=== PATIENT | female | born 1990 | race Caucasian/White ===

== ENCOUNTER 2016-06-14 12:26 | Observation (INO) | payer OTHER, SELFPAY ==
[2016-06-14 12:58] VITALS: BP 117/64; PULSE 95
[2016-06-14 13:29] LABS: Collection Type VOID
[2016-06-14 13:30] LABS: COMPLETE URINE MICROSCOPIC? YES; Ph 5.5 (5-6)
[2016-06-14 13:38] LABS: Bacteria MODERATE /HPF (NEGATIVE); Epithelial Cells MODERATE /HPF (FEW)
== END 2016-06-14 14:00 | disposition home or self-care (01) ==
LOC: OB 12:26
PROVIDERS: ADMIT Family Medicine; ATTEND Family Medicine
DX: Z34.83 Encounter for supervision of other normal pregnancy, third trimester (principal)
CPT/HCPCS: 80307; 81000; G0378

== ENCOUNTER 2016-06-22 04:49 | Inpatient (IN) | payer OTHER, SELFPAY ==
[2016-06-22] MEDS ORDERED: Lactated Ringers 1,000 ML IV ONE ×2 (05:01→09:13)
[2016-06-22] MEDS ORDERED: Pepcid 20 MG VIAL IV SCH (05:15)
[2016-06-22] MEDS ORDERED: BICITRA 30 ML CUP PO SCH (05:15)
[2016-06-22] MEDS ORDERED: Reglan 10 MG/2 ML IV SCH (05:15)
[2016-06-22] MEDS ORDERED: Lactated Ringers 1,000 ML IV SCH (05:30)
[2016-06-22 05:35] LABS: Mean Platelet Volume 10.2 fl (6-9.5); Platelet Count 235 K/mm3 (150-450); Red Blood Count 3.77 M/mm3 (4.1-5.4); Red Cell Distribution Width 12.9 % (11.5-14.0); White Blood Count 15.4 K/mm3 (4.0-10.5)
[2016-06-22 05:37] LABS: Mean Corpuscular Hemoglobin 32.3 pg (26-32)
[2016-06-22 05:46] LABS: INR 0.99 (0.8-3.0); PROTIME 11.1 SECONDS (9.95-12.35)
[2016-06-22 05:49] LABS: PTT 28.3 SECONDS (25.3-37.0)
[2016-06-22 05:55] LABS: Collection Type VOID
[2016-06-22 06:02] LABS: Bacteria MANY /HPF (NEGATIVE); COMPLETE URINE MICROSCOPIC? YES; Epithelial Cells MANY /HPF (FEW); Mucus SLIGHT /HPF (NEGATIVE)
[2016-06-22] MEDS ORDERED: Nubain 10 MG/ML IV PRN (07:12)
[2016-06-22] MEDS ORDERED: Narcan 0.4 MG/ML IV PRN (07:12)
[2016-06-22] MEDS ORDERED: DEMEROL 50 MG IV PRN (07:12)
[2016-06-22] MEDS ORDERED: BENADRYL 50 MG/ML IV PRN (07:12)
[2016-06-22] MEDS ORDERED: MORPHINE SULFATE 2 MG INJ IV PRN (07:12)
[2016-06-22] MEDS ORDERED: HOLD NARCOTIC ANALGESICS AND SEDATIVES X24 HR MC PRN (07:12)
[2016-06-22] MEDS ORDERED: Zofran 4 MG/2 ML VIAL IV PRN (07:12)
[2016-06-22] MEDS ORDERED: CLARITIN 10 MG PO PRN (07:12)
[2016-06-22] MEDS ORDERED: CORTISONE 1% CREAM TP PRN (07:17)
[2016-06-22] MEDS ORDERED: Dulcolax 10 MG SUPP PR PRN (07:17)
[2016-06-22] MEDS ORDERED: MOTRIN 400 MG PO PRN (07:17)
[2016-06-22] MEDS ORDERED: LANSINOH 40 GM TOP PRN (07:17)
[2016-06-22] MEDS ORDERED: TUCKS TP PRN (07:17)
[2016-06-22] MEDS ORDERED: TYLENOL EXTRA STRENGTH 500 MG PO PRN (07:17)
[2016-06-22] MEDS ORDERED: Dextrose 5%-Lr IV Solution 1000 ML 1,000 ML IV SCH (07:30)
[2016-06-22] MEDS ORDERED: Narcan 0.4 MG/ML IV ONE (08:00)
[2016-06-22] MEDS ORDERED: SUBLIMAZE 100 MCG/2 ML IV ONE (08:00)
[2016-06-22] MEDS ORDERED: Pitocin 10 UNITS/ML IV ONE (08:00)
[2016-06-22] MEDS ORDERED: Astramorph-Pf 5 MG/10 ML IV ONE (08:00)
[2016-06-22] MEDS ORDERED: ROPIVACAINE 0.2% IJ ONE (08:00)
[2016-06-22] MEDS ORDERED: Ephedrine Sulfate 50 MG/ML IV ONE (08:00)
[2016-06-22] MEDS ORDERED: BENADRYL 50 MG/ML IV ONE (08:00)
[2016-06-22] MEDS ORDERED: KEFZOL 1 GM ONE (08:57)
[2016-06-22 11:36] LABS: COMPLETE URINE MICROSCOPIC? NO; Collection Type CATH
--- NOTE | 2016-06-22 11:56 | OP ---
SURGERY DATE: 06/22/16 SURGERY TIME: 813 PREOPERATIVE DIAGNOSES: 1. HISTORY OF PRIOR SECTION. 2. TERM INTRAUTERINE . 3. SUICIDAL IDEATION. 4. BIPOLAR DISORDER. 5. BREECH PRESENTATION. 6. DESIRES PERMANENT STERILIZATION. POSTOPERATIVE DIAGNOSES: 1. HISTORY OF PRIOR SECTION. 2. TERM INTRAUTERINE . 3. SUICIDAL IDEATION. 4. BIPOLAR DISORDER. 5. BREECH PRESENTATION. 6. DESIRES PERMANENT STERILIZATION. PROCEDURE: 1. Repeat section plus bilateral tubal ligation. SURGEON: Enmanuel Khan M.D. ANESTHESIA: Spinal by Donn Lorenz CRNA. ESTIMATED BLOOD LOSS: 400 cc. URINE OUTPUT: 400 cc clear straw-colored urine. IV FLUIDS: 1200 cc of crystalloid. SPECIMEN: 1. Bilateral fallopian tube segments. DESCRIPTION OF PROCEDURE: After informed written consent was obtained, the patient was taken to the OR. I discussed the risk of bleeding, infection, and damage to surrounding tissues prior to her signing consent. I also discussed the accepted failure rate of tubal ligation being 1:300 and if there were any chance that she were to think she were to become , she needed to seek medical care right away. The patient voiced understanding of that failure rate and voiced understanding of the permanent nature of bilateral tubal ligation and wished to proceed. She was taken to the OR and prepped and draped in the usual sterile fashion after she underwent spinal anesthesia. After adequate level of anesthesia was assessed, a skin incision was made by knife and carried down through the subcutaneous fat to the level of the fascia which was nicked on both sides of the midline. Fascial incision was then extended in a horizontal fashion using curved Esqueda scissors. The superior free edge of the fascia was grasped with Fatimah clamps and the underlying rectus muscles were dissected free. The same was repeated inferiorly. Next, the peritoneal cavity was opened carefully and extended in a horizontal fashion. Bladder blade was then inserted. Bladder flap was created and reflected over the lower uterine segment. Uterine incision was made by knife and carried down to the level of the amniotic membranes which were carefully, artificially ruptured. A male infant with delivered from the breech presentation with no complications. There was a strong cry immediately after delivery. The oropharynx and nares were bulb suctioned free of amniotic fluid. The cord was clamped and cut and the baby was handed off to the awaiting nursery team. The uterus was then exteriorized and the placenta was manually removed from the uterine cavity. The uterine cavity was then sponge curetted clean with a Lap sponge and the uterine incision was closed with #1 chromic in a running, locked fashion. Two layers were used to provide good closure and good hemostasis. Next, the right fallopian tube was identified and carried down to the fimbrial edge. It was grasped with a Dillingham and then a window was made in the mesosalpinx with electrocautery. The distal and proximal tube segments were then ligated with a chromic tie and the interceding tube segment was dissected free with Metzenbaum scissors. The free end of the fallopian tube was then cauterized with electrocautery. The same was repeated on the left with no complications. The posterior cul-de-sac was wiped free of blood and clot with a moist Lap sponge and the uterus was returned to the peritoneal cavity. The lateral gutters were wiped free of blood and clot and the uterine incision was inspected and noted to be hemostatic. Next, the fascial layer was closed with the 0 Vicryl in a running fashion. There was small bowel and greater omentum extruding through the incision. Therefore, a Taylor was used as a backstop to cover the small intestine and greater omentum. The fascia was closed in a running fashion with good closure and good hemostasis. Taylor was removed prior to complete closure. The subcutaneous fat was then irrigated with warm, sterile saline and any areas of bleeding were cauterized with electrocautery. Finally, the skin layer was closed with 4-0 undyed Vicryl in running subcuticular fashion. Steri-Strips and occlusive dressing were placed over the incision and the patient was transferred to the recovery room in excellent condition.
[2016-06-22] MEDS: PERCOCET TABLET 5/325MG PO PRN ×4 (13:32→22:56)
[2016-06-22] MEDS ORDERED: Seroquel 25 MG PO SCH (22:00)
[2016-06-22] MEDS: Colace 100 MG PO SCH ×2 (22:36)
[2016-06-22] MEDS: Mylicon 80MG PO PRN (22:36)
[2016-06-23] MEDS: FERREX 150 PO SCH ×2 (00:02→10:01)
[2016-06-23] MEDS: PERCOCET TABLET 5/325MG PO PRN (03:36)
[2016-06-23 04:16] VITALS: O2SAT 99
[2016-06-23 05:57] LABS: Mean Cell Volume 97.3 fl (78-100); Mean Platelet Volume 10.8 fl (6-9.5); Platelet Count 220 K/mm3 (150-450); Red Blood Count 3.71 M/mm3 (4.1-5.4); Red Cell Distribution Width 13.1 % (11.5-14.0); White Blood Count 12.5 K/mm3 (4.0-10.5)
[2016-06-23 06:08] LABS: Mean Corpuscular Hemoglobin 33.1 pg (26-32)
[2016-06-23] MEDS ORDERED: Phenergan 25 MG INJ IM PRN (07:12)
[2016-06-23] MEDS ORDERED: DEMEROL 75 MG IM PRN (07:12)
[2016-06-23] MEDS ORDERED: Tylenol #3 Tablet PO PRN (07:17)
[2016-06-23] MEDS ORDERED: Restoril 15 MG PO PRN (07:17)
[2016-06-23] MEDS ORDERED: Ambien 10 MG PO PRN (07:17)
[2016-06-23 07:44] LABS: Hepatits B Sur Ag Screen Non Reactive (Non Reactive)
[2016-06-23 08:33] VITALS: BP 122/76; PULSE 88
[2016-06-23] MEDS ORDERED: NORCO 7.5/325 MG TAB PO PRN (08:37)
[2016-06-23] MEDS ORDERED: Dilantin 100 MG PO SCH ×2 (10:00→22:00)
[2016-06-23] MEDS: Colace 100 MG PO SCH (10:01)
[2016-06-23] MEDS: Mylicon 80MG PO PRN (10:01)
--- NOTE | 2016-06-23 13:26 | PCM.DS ---
Discharge Summary Date of Admission: 06/22/16 04:49 Admitting Physician: DARREN GALLAGHER Consults: Consults on Case 06/22/16 05:01 Notify Anesthesia Provider ROUTINE Notify Physician OF ADMISSION 06/22/16 07:12 Notify Anesthesia Provider PRN Primary Care Provider: DARREN GALLAGHER Allergies Allergies levetiracetam [From Keppra] Allergy (Mild, Verified 06/22/16 05:14) rash and "makes me sick" Hospital Summary - Hospital Course Hospital Course: patient is doing quite well POD #1 s/p - Vitals & Intake/Output Vital Signs: Vital Signs Temperature 97.9 F 06/23/16 08:00 Pulse Rate 88 06/23/16 08:00 Respiratory Rate 20 06/23/16 08:00 Blood Pressure 122/76 06/23/16 08:00 O2 Sat by Pulse Oximetry 99 06/23/16 04:00 Intake & Output: Intake & Output 06/21/16 06/22/16 06/23/16 06/24/16 11:59 11:59 11:59 11:59 Output Total 1000 Balance -1000 Weight 132.449 kg - Lab Result Diagrams: 06/23/16 05:08 Lab Results-Last 24 Hrs: Lab Results-Last 24 Hours 06/22/16 06/23/16 Range/Units 05:20 05:08 WBC 12.5 H (4.0-10.5) K/mm3 RBC 3.71 L (4.1-5.4) M/mm3 Hgb 12.3 (12.0-16.0) gm/dl Hct 36.1 (35-47) % MCV 97.3 (78-100) fl MCH 33.1 H (26-32) pg MCHC 34.1 (32-36) g/dl RDW 13.1 (11.5-14.0) % Plt Count 220 (150-450) K/mm3 MPV 10.8 H (6-9.5) fl Hep Bs Antigen Non Reactive (Non Reactive) HIV Ag/Ab Combo Qual Non Reactive (Non Reactive) HIV Ag/Ab Interpret See Result Note: Micro Results-Entire Visit: Microbiology 06/22/16 08:30 Urine Culture - Preliminary Urine, Catheterized NO GROWTH TO DATE - Procedures and Test Procedures and Tests throughout Hospitalization: Therapy Orders & Screens 06/22/16 07:12 Smoking Cessation Education ONCE Comment: Diagnosis: Scheduled Smoking Status: Current some day smoker How long have you smoked: 15 Have you smoked in the past 12 months: Yes Approximately how many cigarettes per day: 20 Do you dip or chew tobacco: No If,Former Smoker,when did you quit: 12/14/11 Discharge Exam General Appearance: no apparent distress, alert Respiratory Exam: normal breath sounds, lungs clear, No respiratory distress Cardiovascular Exam: regular rate/rhythm, normal heart sounds Gastrointestinal/Abdomen Exam: soft, other (incision c/d/i) Extremity Exam: normal inspection, normal range of motion Final Diagnosis/Problem List - Final Discharge Diagnosis/Problem (1) delivery delivered Current Visit: Yes Status: Acute (2) Tubal ligation status Current Visit: Yes Status: Acute - Discharge Disposition: Home, Self-Care Condition: Stable Prescriptions: New Quetiapine Fumarate 25 mg [Seroquel 25 MG] 50 mg PO HS #30 tablet Hydrocodone Bit/Acetaminophen [[place] 7.5-325 Tablet] 1 tab PO Q6H PRN PRN # 30 tablet PRN Reason: Pain Continue Albuterol 2.5 mg/3 ml Neb [Proventil 2.5 mg/3 ml Neb] 1 neb IH Q4- 6HPRN PRN PRN Reason: Cough No Action Vitamins/Fe Sulf/FA [ Tablet] 1 tab PO DAILY #30 tablet Ranitidine HCl [Zantac] 150 mg PO BID Follow up with: DARREN GALLAGHER MD [Primary Care Provider] - 1 Week
== END 2016-06-23 14:20 | disposition home or self-care (01) | DRG 765 ==
LOC: OB 04:49
PROVIDERS: ADMIT Family Medicine; ATTEND Family Medicine
PROC: 10D00Z1 Extraction of Products of Conception, Low, Open Approach (ICD-10-PCS; principal; 2016-06-22)
PROC: 0UL70ZZ Occlusion of Bilateral Fallopian Tubes, Open Approach (ICD-10-PCS; 2016-06-22)
DX: O32.1XX0 Maternal care for breech presentation, not applicable or unspecified (principal); R45.851 Suicidal ideations; Z37.9 Outcome of delivery, unspecified; Z3A.38 38 weeks gestation of pregnancy; Z37.0 Single live birth; F31.9 Bipolar disorder, unspecified; Z30.2 Encounter for sterilization
CPT/HCPCS: 01961; 36415; 64425; 76942; 80307; 81000; 81002; 85027; 85610; 85730; 86592; 86701; 86702; 86850; 86900; 86901; 87086; 87340; 87389; 94799; J0690; J1200; J2274; J2310; J2590; J2795; J3010; L0625; A9270-GY

== ENCOUNTER 2016-08-13 13:06 | Emergency (ER) | payer OTHER, SELFPAY ==
[2016-08-13 13:17] VITALS: BP 106/79
--- NOTE | 2016-08-13 13:28 | ERPHSYRPT ---
- History of Present Illness Time Seen by Provider: 08/13/16 13:24 Source: patient Exam Limitations: no limitations Patient Subjective Stated Complaint: pt here for sob and cough for over a month off and on getting worse, sob at rest,nonproductive cough, no fever,runny nose Triage Nursing Assessment: pt alert, walked in, resp labored with excertion, cough occ, chest with wheezes and rhonci Physician History: Pt. with dry cough, SOB for past 2 weeks, along with congestion, sore throat but no fever, chills, N/V/D, dizziness or weakness. Pt. also states 1/2 PPD. Recently given to baby boy 2 months. Using mom's inhaler with some relief. Timing/Duration: day(s), gradual onset Cough Quality/Degree: moderate, dry cough Possible Cause: occasional episodes Modifying Factors: Improves With: activity (worsens), albuterol inhaler (improve ), exertion (worsens) Associated Symptoms: muscle aches, nasal congestion, nasal drainage, shortness of breath, No fever, No chills, No lightheadedness Allergies/Adverse Reactions: levetiracetam [From [facility]] Allergy (Mild, Verified 08/13/16 13:17) rash and "makes me sick" Home Medications: Albuterol 2.5 mg/3 ml Neb [Proventil 2.5 mg/3 ml Neb] 1 neb IH Q4-6HPRN PRN 02/15/16 [History] Ranitidine HCl [Zantac] 150 mg PO BID 06/14/16 [History] Phenytoin Sod Extended 100 mg* [Dilantin 100 MG] 300 mg DAILY 08/13/16 [ History] Hx Tetanus, Diphtheria Vaccination/Date Given: Yes Hx Influenza Vaccination/Date Given: No Hx Pneumococcal Vaccination/Date Given: No Immunizations Up to Date: Yes - Review of Systems Constitutional: Fatigue, Malaise, Weakness, No Fever, No Chills Eyes: No Symptoms Ears, Nose, & Throat: Nose Congestion, Nose Discharge, Throat Pain, No Painful Swallowing Respiratory: Cough, Dyspnea, Wheezing Cardiac: No Chest Pain, No Edema, No Palpitations, No Syncope Abdominal/Gastrointestinal: No Abdominal Pain, No Nausea, No Vomiting, No Diarrhea Genitourinary Symptoms: No Dysuria Musculoskeletal: No Back Pain, No Neck Pain Skin: No Rash Neurological: No Dizziness, No Focal Weakness, No Sensory Changes Psychological: No Symptoms Endocrine: No Symptoms All Other Systems: Reviewed and Negative - Past Medical History Pertinent Past Medical History: Yes Neurological History: Seizures ENT History: No Pertinent History Cardiac History: No Pertinent History Respiratory History: Bronchitis Endocrine Medical History: No Pertinent History Musculoskeletal History: No Pertinent History GI Medical History: No Pertinent History History: No Pertinent History Psycho-Social History: Bipolar, Depression Female Reproductive Disorders: No Pertinent History Other Medical History: Asthma - Past Surgical History Past Surgical History: Yes Neuro Surgical History: No Pertinent History Cardiac: No Pertinent History Respiratory: No Pertinent History Gastrointestinal: No Pertinent History Genitourinary: No Pertinent History Musculoskeletal: No Pertinent History Female Surgical History: Section, Tubal Ligation Other Surgical History: leg surgery - Social History Smoking Status: Current some day smoker How long have you smoked: 15 Exposure to second hand smoke: Yes Drug Use: none Patient Lives Alone: No - Female History Hx Last Menstrual Period: [id number] Hx Now: Yes - Nursing Vital Signs Nursing Vital Signs: Initial Vital Signs Temperature 97.9 F Temperature Source Oral Pulse Rate 93 Respiratory Rate 22 Blood Pressure [Right Arm] 106/79 Pain Intensity 0 - Physical Exam General Appearance: no apparent distress, alert Eye Exam: PERRL/EOMI, eyes nml inspection Ears, Nose, Throat Exam: normal ENT inspection, TMs normal, pharynx normal, moist mucous membranes Neck Exam: normal inspection, non-tender, supple, full range of motion Respiratory Exam: diminished breath sounds, wheezing (throughout), No respiratory distress Cardiovascular Exam: regular rate/rhythm, normal heart sounds Gastrointestinal/Abdomen Exam: soft, No tenderness Back Exam: normal inspection, No CVA tenderness, No vertebral tenderness Extremity Exam: normal inspection, normal range of motion Neurologic Exam: alert, oriented x 3, cooperative, normal mood/affect, sensation nml, No motor deficits Skin Exam: normal color, warm, dry, No rash Lymphatic Exam: No adenopathy SpO2: 97 Oxygen Delivery: Room Air - Course Nursing assessment & vital signs reviewed: Yes Ordered Tests: Active Orders 24 hr Category Date Time Status CHEST 2 VIEWS (PA AND LAT) Stat Exams 08/13/16 13:33 Completed Respiratory Nebulizer STAT RT 08/13/16 13:33 Completed Medication Summary Discontinued Medications Generic Name Dose Route Start Last Admin Trade Name Freq PRN Reason Stop Dose Admin Albuterol/Ipratropium 3 ml 08/13/16 13:31 08/13/16 14:03 Duoneb 0.5-3 Mg/3 Ml Neb IH 08/13/16 13:32 3 ml STAT ONE Administration Albuterol/Ipratropium Confirm 08/13/16 14:02 Duoneb 0.5-3 Mg/3 Ml Neb Administered 08/13/16 14:03 Dose 3 ml IH .STK-MED ONE Methylprednisolone Sodium Succinate 125 mg 08/13/16 13:31 08/13/16 13:47 Solu-Medrol 125 Mg IM 08/13/16 13:32 125 mg STAT ONE Administration Methylprednisolone Sodium Succinate Confirm 08/13/16 13:41 Solu-Medrol 125 Mg Administered 08/13/16 13:42 Dose 125 mg .ROUTE .STK-MED ONE - Progress Progress: improved Air Movement: good Progress Note: 08/13/16 13:31 Pt. given Solumedrol, Duonebs with some relief of her symptoms Blood Culture(s) Obtained: No Antibiotics given: No Counseled pt/family regarding: lab results, diagnosis, rad results - Departure Time of Disposition: 14:37 Departure Disposition: Home Clinical Impression: Bronchitis Condition: Stable Critical Care Time: No Instructions: Cough -- Adult, Bronchitis Additional Instructions: Tylenol or Motrin for fever, RX: Albuterol nebs/MDI, Prednisone, Z-Pack Return for worse cough, fever, short of breath or any problems Prescriptions: Albuterol 8 gm Mdi Hfa [Ventolin Hfa MDI] 8 gm IH Q4-6HPRN PRN #0 [id number] PRN Reason: Cough Azithromycin [Zithromax] 500 mg PO ZPACK #1 tablet Prednisone 20 mg [Deltasone 20 mg] 60 mg PO DAILY #15 tablet
[2016-08-13] MEDS ORDERED: DUONEB 0.5-3 MG/3 ml Neb IH ONE ×2 (13:31→14:02)
[2016-08-13] MEDS ORDERED: solu-MEDROL 125 MG IM ONE (13:31)
[2016-08-13] MEDS ORDERED: solu-MEDROL 125 MG ONE (13:41)
--- NOTE | 2016-08-13 14:03 | XRAY ---
Indication: Cough and short of breath. Comparison: April 27, 2008. PA/lateral chest again demonstrates normal heart, lungs, and bony thorax.
[2016-08-13 14:09] VITALS: PULSE 93
[2016-08-13 14:42] VITALS: O2SAT 97
== END 2016-08-13 15:00 | disposition home or self-care (01) ==
LOC: ED 13:06
DX: J40 Bronchitis, not specified as acute or chronic (principal); R06.02 Shortness of breath; R05 Cough
CPT/HCPCS: 71020; 94640; 96372; 99284; J2930; A9270-GY

== ENCOUNTER 2017-09-25 12:56 | Emergency (ER) | payer OTHER, SELFPAY ==
[2017-09-25] MEDS ORDERED: TORAdol 30 mg Injection IM ONE (13:21)
[2017-09-25] MEDS ORDERED: NORCO 5/325 MG PO ONE (13:24)
--- NOTE | 2017-09-25 13:30 | ERPHSYRPT ---
- History of Present Illness Time Seen by Provider: 09/25/17 13:25 Source: patient Exam Limitations: no limitations Patient Subjective Stated Complaint: Pt states "I have alpha 1 lung disease and I have been having pain for the past 8 months but the past couple of weeks I have really been hurting. I am just really here to make sure there is no cancer on my left lung." Triage Nursing Assessment: Pt alert and oriented X 3, skin pwd Pt ambulates with an upright steady gait, able to speak in clear full sentences. PT in no apparent distress. Physician History: 27-year-old white female who states that she has alpha-1 antitrypsin disease and chronic back pain arrives with complaint of pain in her lateral and posterior left chest with breathing described as sharp symptoms for 8 months. She has an occasional cough. She apparently has a prescription for hydrocodone/acetaminophen 7.5/325 but states she has not been taking it for 2 weeks because "it doesn't work"" Past medical history includes seizures, bronchitis, bipolar depression, asthma. Past surgical history includes , tubal ligation, leg surgery. Patient states she smokes despite her alpha-1 antitrypsin deficiency Timing/Duration: other (symptoms for 8 months) Severity: moderate Modifying Factors: Improves With: other (patient states she has a prescription for hydrocodone/acetaminophen but is not taking it) Associated Symptoms: chest pain (pain in the left lateral and posterior chest with breathing and coughing), No nausea, No vomiting, No abdominal pain, No shortness of breath, No heartburn, No diaphoresis, No cough, No loss of appetite Allergies/Adverse Reactions: levetiracetam [From [facility]] Allergy (Mild, Verified 08/13/16 13:17) rash and "makes me sick" Home Medications: Albuterol 2.5 mg/3 ml Neb [Proventil 2.5 mg/3 ml Neb] 1 neb IH Q4-6HPRN PRN 02/15/16 [History] Phenytoin Sod Extended 100 mg* [Dilantin 100 MG] 300 mg DAILY 08/13/16 [ History] Hx Tetanus, Diphtheria Vaccination/Date Given: Yes Hx Influenza Vaccination/Date Given: No Hx Pneumococcal Vaccination/Date Given: No Immunizations Up to Date: Yes - Review of Systems Constitutional: No Fever, No Chills Eyes: No Symptoms Ears, Nose, & Throat: No Symptoms Respiratory: Cough, No Cyanosis, No Dyspnea, No Dyspnea on Exertion ([place]), No Stridor, No Wheezing Cardiac: Other (pain and lateral posterior left chest with breathing and coughing) Abdominal/Gastrointestinal: No Abdominal Pain, No Nausea, No Vomiting, No Diarrhea Genitourinary Symptoms: No Dysuria Musculoskeletal: No Back Pain, No Neck Pain Skin: No Rash Neurological: No Dizziness, No Focal Weakness, No Sensory Changes Psychological: No Symptoms Endocrine: No Symptoms All Other Systems: Reviewed and Negative - Past Medical History Pertinent Past Medical History: Yes Neurological History: Seizures ENT History: No Pertinent History Cardiac History: No Pertinent History Respiratory History: Bronchitis Endocrine Medical History: No Pertinent History Musculoskeletal History: No Pertinent History GI Medical History: No Pertinent History History: No Pertinent History Psycho-Social History: Bipolar, Depression Female Reproductive Disorders: No Pertinent History Other Medical History: Asthma - Past Surgical History Past Surgical History: Yes Neuro Surgical History: No Pertinent History Cardiac: No Pertinent History Respiratory: No Pertinent History Gastrointestinal: No Pertinent History Genitourinary: No Pertinent History Musculoskeletal: No Pertinent History Female Surgical History: Section, Tubal Ligation Other Surgical History: leg surgery - Social History Smoking Status: Current every day smoker How long have you smoked: 17 years Exposure to second hand smoke: Yes Drug Use: none Patient Lives Alone: No - Female History Hx Last Menstrual Period: 08/22/2017 Hx Now: No (tubal) - Nursing Vital Signs Nursing Vital Signs: Initial Vital Signs Temperature 98.8 F 09/25/17 13:07 Pulse Rate 96 H 09/25/17 13:07 Respiratory Rate 18 09/25/17 13:07 Blood Pressure 118/72 09/25/17 13:07 O2 Sat by Pulse Oximetry 97 09/25/17 13:07 Pain Scale Pain Intensity [] 7 Pain Intensity 4 - Physical Exam General Appearance: no apparent distress, alert Eye Exam: PERRL/EOMI, eyes nml inspection Ears, Nose, Throat Exam: normal ENT inspection, TMs normal, pharynx normal, moist mucous membranes Neck Exam: normal inspection, non-tender, supple, full range of motion Respiratory Exam: other (Patient with occasional wheeze, clears with coughing, lungs otherwise clear and equal) Cardiovascular Exam: regular rate/rhythm, normal heart sounds, normal peripheral pulses Gastrointestinal/Abdomen Exam: soft, normal bowel sounds, No tenderness, No mass Back Exam: normal inspection, normal range of motion, No CVA tenderness, No vertebral tenderness Extremity Exam: normal inspection, normal range of motion, pelvis stable Neurologic Exam: alert, oriented x 3, cooperative, 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 as tested, normal mood/affect, nml cerebellar function, nml station & gait, sensation nml, No motor deficits Skin Exam: normal color, warm, dry, No rash Lymphatic Exam: No adenopathy SpO2 Interpretation: normal (97%) SpO2: 97 Oxygen Delivery: Room Air - Course Nursing assessment & vital signs reviewed: Yes EKG Interpreted by Me: RATE (96 bpm), Sinus Rhythm, NORMAL AXIS, Other (EKG: Sinus rhythm, 96 bpm, normal axis, no acute ST or T wave changes, essentially normal EKG) - Radiology Exams Chest X-ray Interpretation: Interpreted by me, Other (opacity noted left upper lobe, no change from August 13, 2016) Ordered Tests: Active Orders 24 hr Category Date Time Status EKG-ER Only STAT Care 09/25/17 13:20 Active CHEST 2 VIEWS (PA AND LAT) Stat Exams 09/25/17 13:20 Taken Medication Summary Discontinued Medications Generic Name Dose Route Start Last Admin Trade Name Lary PRN Reason Stop Dose Admin Hydrocodone Bitart/Acetaminophen 2 tab 09/25/17 13:24 09/25/17 13:45 [place] 5/325 Mg PO 09/25/17 13:25 2 tab STAT ONE Administration Hydrocodone Bitart/Acetaminophen Confirm 09/25/17 13:45 [place] 5/325 Mg Administered 09/25/17 13:46 Dose 2 tab .ROUTE .STK-MED ONE Ketorolac Tromethamine 60 mg 09/25/17 13:21 09/25/17 13:24 Toradol 30 Mg Injection IM 09/25/17 13:22 Not Given STAT ONE - Progress Progress: improved Progress Note: 09/25/17 14:19 Patient's chest x-ray appears to have an opacity in the left upper lung unchanged from August 13, 2016. Will give patient Zithromax. Patient to continue her current pain medicine as prescribed by her family doctor. Patient to follow-up with her family doctor. - Departure Time of Disposition: 14:20 Departure Disposition: Home Clinical Impression: Pleurisy, Abnormal chest x-ray, Left upper lobe infiltrate Condition: Fair Critical Care Time: No Referrals: DARREN GALLAGHER MD [Primary Care Provider] - Additional Instructions: Return home. Zithromax Z-FAUSTINO as directed. Stop smoking. Pain medication as prescribed by your family doctor. Follow-up with your family doctor. Plenty of fluids. Return for acute distress or for severe symptoms. Prescriptions: Azithromycin 250 mg [Zithromax 250 MG TABLET] 0 mg PO ZPACK #6 tablet
[2017-09-25] MEDS ORDERED: NORCO 5/325 MG ONE (13:45)
[2017-09-25 14:27] VITALS: BP 103/69; PULSE 88
[2017-09-25 14:35] VITALS: O2SAT 97
--- NOTE | 2017-09-25 20:54 | XRAY ---
Indication: Chest pain. Comparison: August 13, 2016. PA/lateral chest remains clear. Heart is not enlarged. Bony thorax intact. No new/acute findings.
== END 2017-09-25 14:42 | disposition home or self-care (01) ==
LOC: ED 12:56
DX: R09.1 Pleurisy (principal); R91.8 Other nonspecific abnormal finding of lung field; E88.01 Alpha-1-antitrypsin deficiency; M54.9 Dorsalgia, unspecified; Z79.899 Other long term (current) drug therapy
CPT/HCPCS: 71046; 93005; 99284; A9270-GY

== ENCOUNTER 2020-04-05 00:19 | Emergency (ER) | payer MEDICAID ==
--- NOTE | 2020-04-05 00:47 | ERPHSYRPT ---
- History of Present Illness Time Seen by Provider: 04/05/20 00:27 Source: patient Physician History: 30 years old female is brought in the ER by PD after she has arguments with her fianc and made a suicidal comment. Patient denies any suicidal ideations or plan currently. She reports she was frustrated earlier but she does not have any plan or any thoughts before off contact. Reports she wants to live for her 5 kids and have never thought about having them at any suicide. Denies ideas of helplessness/hopelessness. Timing/Duration: hour(s) (1) Severity of Symptoms-Max: mild Severity of Symptoms-Current: mild Context related to: significant other Suicidal thoughts: gesture Associated Symptoms: anxiety Previous symptoms: no prior history Allergies/Adverse Reactions: levetiracetam [From [facility]] Allergy (Mild, Verified 08/13/16 13:17) rash and "makes me sick" Home Medications: Albuterol 2.5 mg/3 ml Neb [Proventil 2.5 mg/3 ml Neb] 1 neb IH Q4-6HPRN PRN 02/15/16 [History] Quetiapine Fumarate 25 mg [Seroquel 25 MG] 400 mg PO HS 04/05/20 [History] Hx Tetanus, Diphtheria Vaccination/Date Given: Yes Hx Influenza Vaccination/Date Given: No Hx Pneumococcal Vaccination/Date Given: No - Past Medical History Pertinent Past Medical History: Yes Neurological History: Seizures ENT History: No Pertinent History Cardiac History: No Pertinent History Respiratory History: Bronchitis Endocrine Medical History: No Pertinent History Musculoskeletal History: No Pertinent History GI Medical History: No Pertinent History History: No Pertinent History Psycho-Social History: Bipolar, Depression Female Reproductive Disorders: No Pertinent History Other Medical History: Asthma - Past Surgical History Past Surgical History: Yes Neuro Surgical History: No Pertinent History Cardiac: No Pertinent History Respiratory: No Pertinent History Gastrointestinal: No Pertinent History Genitourinary: No Pertinent History Musculoskeletal: No Pertinent History Female Surgical History: Section, Tubal Ligation Other Surgical History: leg surgery - Social History Smoking Status: Current every day smoker How long have you smoked: 17 years Exposure to second hand smoke: Yes Drug Use: none Patient Lives Alone: No - Review of Systems Constitutional: No Symptoms Eyes: No Symptoms Ears, Nose, & Throat: No Symptoms Respiratory: No Symptoms Cardiac: No Symptoms Abdominal/Gastrointestinal: No Symptoms Genitourinary Symptoms: No Symptoms Musculoskeletal: No Symptoms Skin: No Symptoms Neurological: No Symptoms Psychological: Anxiety Endocrine: No Symptoms Hematologic/Lymphatic: No Symptoms Immunological/Allergic: No Symptoms - Nursing Vital Signs Nursing Vital Signs: Initial Vital Signs Temperature 98.2 F 04/05/20 00:33 Pulse Rate 111 H 04/05/20 00:33 Respiratory Rate 24 04/05/20 00:33 Blood Pressure 111/93 04/05/20 00:33 O2 Sat by Pulse Oximetry 100 04/05/20 00:33 Pain Scale Pain Intensity 0 - Physical Exam General Appearance: no apparent distress, alert, anxiety Eyes, Ears, Nose, Throat Exam: normal ENT inspection, TMs normal, pharynx normal Neck Exam: normal inspection, supple, full range of motion Respiratory Exam: normal breath sounds, lungs clear Cardiovascular Exam: regular rate/rhythm, normal heart sounds Gastrointestinal/Abdominal Exam: soft, normal bowel sounds Extremities Exam: normal inspection Current Suicidality: denies suicide plan Neurological Exam: alert, normal mood/affect, body hanger II-XII nml as tested, anxious Appearance: appropriate appearance, appropriate insight Behavior/Eye Contact/Speech: alert & cooperative, cooperative, good eye contact, normal speech Skin Exam: normal color SpO2 Interpretation: normal SpO2: 100 O2 Delivery: Room Air Lab/Rad Data: Laboratory Result Diagrams 04/05/20 00:40 04/05/20 00:40 Laboratory Results 04/05/20 04/05/20 04/05/20 Range/Units 00:40 00:40 00:33 WBC 14.6 H (4.0-10.5) K/mm3 RBC 4.77 (4.1-5.4) M/mm3 Hgb 15.0 (12.0-16.0) gm/dl Hct 45.7 (35-47) % MCV 95.8 (78-100) fl MCH 31.4 (26-32) pg MCHC 32.8 (32-36) g/dl RDW 13.6 (11.5-14.0) % Plt Count 283 (150-450) K/mm3 MPV 9.9 (7.5-11.0) fl Gran % 60.4 (36.0-66.0) % Eos # (Auto) 0.35 (0-0.5) Absolute Lymphs (auto) 4.00 (1.0-4.6) Absolute Monos (auto) 1.42 H (0.0-1.3) Lymphocytes % 27.4 (24.0-44.0) % Monocytes % 9.7 (0.0-12.0) % Eosinophils % 2.4 (0.00-5.0) % Basophils % 0.1 (0.0-0.4) % Absolute Granulocytes 8.82 H (1.4-6.9) Basophils # 0.02 (0-0.4) Sodium 136 L (137-145) mmol/L Potassium 4.3 (3.5-5.1) mmol/L Chloride 107 (98-107) mmol/L Carbon Dioxide 24 (22-30) mmol/L Anion Gap 9.3 (5-15) MEQ/L BUN 19 H (7-17) mg/dL Creatinine 0.75 (0.52-1.04) mg/dL Estimated GFR > 60.0 ML/MIN Glucose 110 H (74-106) mg/dL Calcium 10.1 (8.4-10.2) mg/dL Total Bilirubin 0.20 (0.2-1.3) mg/dL AST 27 (14-36) U/L ALT 26 (0-35) U/L Alkaline Phosphatase 119 (38-126) U/L Serum Total Protein 7.8 (6.3-8.2) g/dL Albumin 4.3 (3.5-5.0) g/dL Urine HCG, Qual NEGATIVE (Negative) Salicylates < 1.0 L (2-20) mg/dL Urine Opiates Level (NEGATIVE) Ur Methadone (NEGATIVE) Acetaminophen < 10 L (10-30) ug/ml Urine Barbiturates (NEGATIVE) Ur Phencyclidine (PCP) (NEGATIVE) Urine Amphetamine (NEGATIVE) U Benzodiazepine Level (NEGATIVE) Urine Cocaine (NEGATIVE) Urine Marijuana (THC) (NEGATIVE) Ethyl Alcohol < 10 (0-10) mg/dL 04/05/20 Range/Units 00:33 WBC (4.0-10.5) K/mm3 RBC (4.1-5.4) M/mm3 Hgb (12.0-16.0) gm/dl Hct (35-47) % MCV (78-100) fl MCH (26-32) pg MCHC (32-36) g/dl RDW (11.5-14.0) % Plt Count (150-450) K/mm3 MPV (7.5-11.0) fl Gran % (36.0-66.0) % Eos # (Auto) (0-0.5) Absolute Lymphs (auto) (1.0-4.6) Absolute Monos (auto) (0.0-1.3) Lymphocytes % (24.0-44.0) % Monocytes % (0.0-12.0) % Eosinophils % (0.00-5.0) % Basophils % (0.0-0.4) % Absolute Granulocytes (1.4-6.9) Basophils # (0-0.4) Sodium (137-145) mmol/L Potassium (3.5-5.1) mmol/L Chloride (98-107) mmol/L Carbon Dioxide (22-30) mmol/L Anion Gap (5-15) MEQ/L BUN (7-17) mg/dL Creatinine (0.52-1.04) mg/dL Estimated GFR ML/MIN Glucose (74-106) mg/dL Calcium (8.4-10.2) mg/dL Total Bilirubin (0.2-1.3) mg/dL AST (14-36) U/L ALT (0-35) U/L Alkaline Phosphatase (38-126) U/L Serum Total Protein (6.3-8.2) g/dL Albumin (3.5-5.0) g/dL Urine HCG, Qual (Negative) Salicylates (2-20) mg/dL Urine Opiates Level POSITIVE (NEGATIVE) Ur Methadone NEGATIVE (NEGATIVE) Acetaminophen (10-30) ug/ml Urine Barbiturates NEGATIVE (NEGATIVE) Ur Phencyclidine (PCP) NEGATIVE (NEGATIVE) Urine Amphetamine NEGATIVE (NEGATIVE) U Benzodiazepine Level NEGATIVE (NEGATIVE) Urine Cocaine NEGATIVE (NEGATIVE) Urine Marijuana (THC) NEGATIVE (NEGATIVE) Ethyl Alcohol (0-10) mg/dL - Progress Progress: improved Progress Note: Patient was evaluated in the ER after she got into arguments with her fianc and made a suicidal comment. Patient denied having suicidal ideations, does not report any history of psychiatric admissions in the past and suicidal attempt. On questioning repeatedly in different ways she refused to have any suicidal homicidal thoughts. She wants to live for her 5 kids. She is medically cleared, evaluated by behavioral health and recommended discharge with outpatient follow-up. I have discussed with patient in detail about signs symptoms of worsening and if has any suicidal homicidal thoughts needing return to ER or call 911 which she seemed understanding. Counseled pt/family regarding: lab results, diagnosis, need for follow-up - Departure Departure Disposition: Home Clinical Impression: Feeling agitated Bipolar disorder Qualifiers: Active/Remission status: remission status unspecified Qualified Code(s): F31.9 - Bipolar disorder, unspecified Condition: Stable Critical Care Time: No Referrals: DARREN GALLAGHER MD [Primary Care Provider] - Follow Up with PCP/3 days Instructions: Bipolar Disorder (DC) Additional Instructions: Follow-up with [facility] for reevaluation as recommended. Return to ER if has any suicidal ideations/plans or worsening depressive symptoms etc.
[2020-04-05 00:49] LABS: Absolute Neutrophil Ct (ANC) 8.82 (1.4-6.9); BASOPHIL % 0.1 % (0.0-0.4); Basophil (Absolute #) 0.02 (0-0.4); Eosinophil % 2.4 % (0.00-5.0); Eosinophil (Absolute #) 0.35 (0-0.5); Hematocrit 45.7 % (35-47); Lymphocytes % 27.4 % (24.0-44.0); Mean Cell Volume 95.8 fl (78-100); Mean Corpuscular Hemoglobin 31.4 pg (26-32); Mean Corpuscular Hgb Concent. 32.8 g/dl (32-36); Mean Platelet Volume 9.9 fl (7.5-11.0); Monocyte (Absolute #) 1.42 (0.0-1.3); Monocytes % 9.7 % (0.0-12.0); Neutrophil % 60.4 % (36.0-66.0); Platelet Count 283 K/mm3 (150-450); Red Blood Count 4.77 M/mm3 (4.1-5.4); Red Cell Distribution Width 13.6 % (11.5-14.0); White Blood Count 14.6 K/mm3 (4.0-10.5)
[2020-04-05 01:02] LABS: ACETAMINOPHEN < 10 ug/ml (10-30); ALBUMIN 4.3 g/dL (3.5-5.0); ALKALINE PHOSPHATASE 119 U/L (38-126); ANION GAP 9.3 MEQ/L (5-15); BLOOD UREA NITROGEN 19 mg/dL (7-17); CHLORIDE 107 mmol/L (98-107); Calcium 10.1 mg/dL (8.4-10.2); Carbon Dioxide 24 mmol/L (22-30); Creatinine 1 0.75 mg/dL (0.52-1.04); EST GLOMERULAR FILTRATION RATE > 60.0 ML/MIN; ETHYL ALCOHOL < 10 mg/dL (0-10); Glucose 110 mg/dL (74-106); Potassium 4.3 mmol/L (3.5-5.1); SALICYLATE < 1.0 mg/dL (2-20); SGOT/AST 27 U/L (14-36); SGPT/ALT 26 U/L (0-35); SODIUM 136 mmol/L (137-145); Total Protein 7.8 g/dL (6.3-8.2)
[2020-04-05 01:09] LABS: Amphetamine,Urine NEGATIVE (NEGATIVE); Barbiturate,Urine NEGATIVE (NEGATIVE); Benzodiazepine,Urine NEGATIVE (NEGATIVE); Cocaine,Urine NEGATIVE (NEGATIVE); Methadone,Urine NEGATIVE (NEGATIVE); Opiate,Urine POSITIVE (NEGATIVE); PCP,Urine NEGATIVE (NEGATIVE); THC,Urine NEGATIVE (NEGATIVE)
[2020-04-05 02:47] VITALS: PULSE 98
[2020-04-05 04:11] VITALS: BP 148/78; O2SAT 100
== END 2020-04-05 04:21 | disposition home or self-care (01) ==
LOC: ED 00:19
DX: F31.9 Bipolar disorder, unspecified (principal); R45.851 Suicidal ideations; F32.9 Major depressive disorder, single episode, unspecified; Z79.899 Other long term (current) drug therapy
CPT/HCPCS: 36415; 80053; 80307; 84703; 85025; 90791; 99284; Q3014; G0480